=== PATIENT | female | born 2000 | race Caucasian/White ===

== ENCOUNTER 2019-04-04 17:05 | Emergency (ER) | payer OTHER, BC ==
[~2019-04-04] VITALS: Ht 162.6 cm; Wt 63.5 kg
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
[2019-04-04] MEDS ORDERED: CYCLOBENZAPRINE 10 MG (FLEXERIL) TAB PO STA (19:08)
[2019-04-04] MEDS ORDERED: CYCL10TA9 PO (19:15)
[2019-04-04] MEDS ORDERED: CYCLOBENZAPRINE 10 MG (FLEXERIL) TAB ONE (19:15)
[2019-04-04] MEDS ORDERED: IBUPROFEN 600 MG (MOTRIN) TAB PO ONE ×2 (19:15)
[2019-04-04 19:23] VITALS: BP 124/78
== END 2019-04-04 19:23 | disposition home or self-care (01) ==
LOC: ER FS 17:08
DX: S39.012A Strain of muscle, fascia and tendon of lower back, initial encounter (principal); S00.83XA Contusion of other part of head, initial encounter; S80.02XA Contusion of left knee, initial encounter; R40.2142 Coma scale, eyes open, spontaneous, at arrival to emergency department; R40.2252 Coma scale, best verbal response, oriented, at arrival to emergency department; R40.2362 Coma scale, best motor response, obeys commands, at arrival to emergency department; V49.40XA Driver injured in collision with unspecified motor vehicles in traffic accident, initial encounter; Y92.410 Unspecified street and highway as the place of occurrence of the external cause
CPT/HCPCS: 70450; 72125; 72128; 73562